=== PATIENT | female | born 1940 | race Two or more races ===

== ENCOUNTER 2022-10-30 10:46 | Emergency (ER) | payer OTHER ==
[~2022-10-30] VITALS: Ht 152.4 cm; Wt 45.4 kg
[2022-10-30] MEDS ORDERED: PROZAC20 MG PO (11:50)
[2022-10-30] MEDS ORDERED: ARICEPT5 MG PO (11:50)
[2022-10-30] MEDS ORDERED: ZOCOR20 MG PO (11:50)
[2022-10-30] MEDS ORDERED: TRAMADOL HCL50 MG PO (14:54)
== END 2022-10-30 17:06 | disposition home or self-care (01) ==
LOC: ER 10:46
DX: S52.532A Colles' fracture of left radius, initial encounter for closed fracture (principal); W18.39XA Other fall on same level, initial encounter; Y93.89 Activity, other specified; Z88.0 Allergy status to penicillin

== ENCOUNTER 2022-12-05 09:16 | Outpatient (CLI) | payer OTHER ==
[~2022-12-05 09:16] MED LIST: ARICEPT5 MG PO; PROZAC20 MG PO; TRAMADOL HCL50 MG PO; ZOCOR20 MG PO
== END 2022-12-05 09:23 | disposition home or self-care (01) ==
LOC: RAD 09:16
PROVIDERS: ATTEND Orthopaedic Surgery
DX: S52.532D Colles' fracture of left radius, subsequent encounter for closed fracture with routine healing (principal)

== ENCOUNTER 2023-02-04 06:26 | Outpatient (CLI) | payer OTHER | END 2023-02-04 06:27 | disposition home or self-care (01) | LOC: LAB 06:26 | PROVIDERS: ATTEND Orthopaedic Surgery | DX: M85.9 Disorder of bone density and structure, unspecified (principal); E83.42 Hypomagnesemia; E56.1 Deficiency of vitamin K; E88.89 Other specified metabolic disorders; M81.8 Other osteoporosis without current pathological fracture ==

== ENCOUNTER 2023-02-04 07:26 | Outpatient (CLI) | payer OTHER | END 2023-02-04 07:33 | disposition home or self-care (01) | LOC: RAD 07:26 | PROVIDERS: ATTEND Orthopaedic Surgery | DX: S52.532D Colles' fracture of left radius, subsequent encounter for closed fracture with routine healing (principal) ==

== ENCOUNTER 2023-02-26 08:36 | Outpatient (CLI) | payer OTHER | END 2023-02-26 08:39 | disposition home or self-care (01) | LOC: LAB 08:36 | PROVIDERS: ATTEND Orthopaedic Surgery | DX: D64.89 Other specified anemias (principal); E88.89 Other specified metabolic disorders; D68.8 Other specified coagulation defects; N39.0 Urinary tract infection, site not specified; A49.02 Methicillin resistant Staphylococcus aureus infection, unspecified site; E11.9 Type 2 diabetes mellitus without complications; I49.9 Cardiac arrhythmia, unspecified; I10 Essential (primary) hypertension; Z76.89 Persons encountering health services in other specified circumstances ==

== ENCOUNTER 2023-02-26 09:46 | Outpatient (CLI) | payer OTHER | END 2023-02-26 09:53 | disposition home or self-care (01) | LOC: RAD 09:46 | PROVIDERS: ATTEND Orthopaedic Surgery | DX: M25.532 Pain in left wrist (principal) ==

== ENCOUNTER 2023-03-05 06:52 | Day surgery (SDC) | payer OTHER | END 2023-03-05 13:55 | disposition home or self-care (01) | LOC: CIR.AMB 06:52 | PROVIDERS: ATTEND Orthopaedic Surgery | DX: M66.332 Spontaneous rupture of flexor tendons, left forearm (principal); T84.84XA Pain due to internal orthopedic prosthetic devices, implants and grafts, initial encounter; M65.832 Other synovitis and tenosynovitis, left forearm; S66.812A Strain of other specified muscles, fascia and tendons at wrist and hand level, left hand, initial encounter; Z20.822 Contact with and (suspected) exposure to COVID-19; Z88.0 Allergy status to penicillin | CPT/HCPCS: 25260; 20680; 20900; L8699 ==

== ENCOUNTER 2023-10-10 08:24 | Outpatient (CLI) | payer OTHER | END 2023-10-10 08:32 | disposition home or self-care (01) | LOC: SONOGRAMA 08:24 | PROVIDERS: ATTEND Internal Medicine Rheumatology | DX: M65.811 Other synovitis and tenosynovitis, right shoulder (principal) ==